=== PATIENT | female | born 1945 | race Caucasian/White ===

== ENCOUNTER 2016-08-11 19:54 | Inpatient (IN) | payer OTHER, MEDICARE ==
[~2016-08-11] VITALS: Ht 157.5 cm; Wt 103.9 kg
[~2016-08-11 19:54] MED LIST: BYETTA250 MCG/ML SC; GLYBURIDE5 MG PO; LEVEMIR100 UNIT/1 SC; METFORMIN HYDR500 M1 PO; METFORMIN1000 MG PO; OXYBUTYNIN CHLO10 M1 PO; PIOGLITAZONE45 MG PO; PRAVACHOL80 M1 PO; VENLAFAXINE HYD75 M1 PO; ZOFRAN ODT4 MG SL
[2016-08-11] MEDS ORDERED: GLUCOPHAGE1000 M1 PO (20:52)
[2016-08-11] MEDS ORDERED: PIOGLITAZONE HC45 M1 PO (20:53)
[2016-08-11] MEDS ORDERED: VENLAFAXINE HCL75 M1 PO (20:53)
[2016-08-11] MEDS ORDERED: PREDNISONE20 M1 PO (20:53)
[2016-08-11] MEDS ORDERED: GABAPENTIN300 M2 PO (20:53)
[2016-08-11] MEDS ORDERED: MAGNESIUM400 M1 PO (20:54)
[2016-08-11] MEDS ORDERED: TURMERIC500 M1 PO (20:54)
[2016-08-11] MEDS ORDERED: VITAMIN B-121000 MC3 PO (20:55)
[2016-08-11] MEDS ORDERED: LECITHIN1200 MG PO (20:55)
[2016-08-11] MEDS ORDERED: CO Q-10150 MG PO (20:55)
--- NOTE | 2016-08-11 21:06 | ED DYSPNEA/ASTHMA COMPLAINT ---
History of Present Illness General Chief Complaint: Dyspnea (COPD, CHF, Other) Stated Complaint: SOB Source: patient, family, old records, Epic records Exam Limitations: no limitations Vital Signs & Intake/Output Vital Signs & Intake/Output Vital Signs Date Time Temp Pulse Resp B/P B/P Pulse O2 O2 Flow FiO2 Mean Ox Delivery Rate 08/11 2216 87 16 137/79 96 Nasal 2.0L Cannula 08/12 2203 97.0 86 20 134/62 96 Nasal 2.0L Cannula 08/11 2202 90 16 116/72 97 Nasal 2.0L Cannula 08/11 2038 94 08/11 2012 97.5 95 24 121/79 92 Room Air Allergies Coded Allergies: hydrocodone (From Vicodin) (RASH/ITCHY 01/18/16) Reconcile Medications Cyanocobalamin (Vitamin B-12) (Unknown Strength) TABLET (Unknown Dose) PO DAILY SUPPLEMENT (Reported) Gabapentin 300 MG CAPSULE 1 CAP PO QPM NERVE PAIN (Reported) Insulin Detemir (Levemir) 100 UNIT/ML VIAL 37 UNITS SC QAM DM (Reported) Lecithin (Unknown Strength) CAPSULE (Unknown Dose) PO DAILY SUPPLEMENT ( Reported) Magnesium Oxide (Magnesium) (Unknown Strength) CAPSULE (Unknown Dose) PO DAILY SUPPLEMENT (Reported) Metformin HCl (Glucophage) 1,000 MG TABLET 1 TAB PO BID DM (Reported) Pioglitazone HCl 45 MG TABLET 1 TAB PO DAILY DM (Reported) Pravastatin Sodium (Pravachol) 80 MG TABLET 1 TAB PO DAILY CHOLESTEROL ( Reported) Prednisone 20 MG TABLET 1 TAB PO DAILY STEROID (Reported) Turmeric Root Extract (Turmeric) (Unknown Strength) CAPSULE (Unknown Dose) PO BID SUPPLEMENT (Reported) Ubidecarenone (Co Q-10) (Unknown Strength) CAPSULE (Unknown Dose) PO DAILY SUPPLEMENT (Reported) Venlafaxine HCl (Venlafaxine HCl ER) 75 MG CAP.ER.24H 1 CAP PO DAILY MENTAL HEALTH (Reported) Triage Note: PER PT "MY DAUGHTER SAYS I'M BREATHING FUNNY" HAD A BRONCHOSCOPY TODAY FOR A SPOT ON MY LUNG, NO CP NO PREVIOUS SOB, PT REFERS ALL QUESTIONS TO DAUGHTER. Triage Nurses Notes Reviewed? yes Onset: Just prior to arrival Duration: hour(s):, better, changing over time Timing: recent history Severity: severe Activities at Onset: activity Modifying Factors: Improves With: rest. Worsens With: movement. Associated Symptoms: cough, fever, weakness LMP (ages 10-50): post menopausal : No Patient currently breastfeeds: No HPI: On the day of admission patient had bronchoscopy and biopsy for right lung mass. The daughter reports she vomited with LMA and transitioned to ET tube. Post procedure chest x-ray demonstrated bilateral patchy perihilar opacity without pneumothorax. 2 hours prior to admission patient spiked fever to 102 with coughing shortness of breath and perioral cyanosis that is now improved. She denies chest pain headache dysuria rash bleeding no further shortness of breath. Past History Travel History Traveled to [place] past 21 day No Medical History Any Pertinent Medical History? see below for history Respiratory: lung mass Musculoskeletal: polymyalgia Endocrine: diabetes Influenza Vaccine: 12/12/15 Surgical History Surgical History: non-contributory Psychosocial History What is your primary language Setswana Family History Hx Contributory? No Review of Systems Review of Systems Constitutional: Reports: see HPI, fever, malaise. EENTM: Reports: no symptoms. Respiratory: Reports: see HPI, cough, short of breath. Cardiovascular: Reports: no symptoms. GI: Reports: no symptoms. Genitourinary: Reports: no symptoms. Musculoskeletal: Reports: no symptoms. Skin: Reports: see HPI, change in skin color. Neurological/Psychological: Reports: no symptoms. Hematologic/Endocrine: Reports: no symptoms. Immunologic/Allergic: Reports: no symptoms. All Other Systems: Reviewed and Negative Physical Exam Physical Exam General Appearance: well developed/nourished, alert, awake, anxious, mild distress, obese Head: atraumatic, normal appearance Eyes: Bilateral: normal appearance, PERRL, EOMI. Ears, Nose, Throat: normal pharynx, normal ENT inspection, hearing grossly normal Neck: normal inspection, supple, full range of motion, no midline tenderness Respiratory: chest non-tender, no respiratory distress, decreased breath sounds, rales Cardiovascular: regular rate/rhythm, normal peripheral pulses, norml femoral pulses equa Peripheral Pulses: 4+ carotid (R), 4+ carotid (L) Gastrointestinal: normal bowel sounds, soft, non-tender, no organomegaly Extremities: normal inspection, normal capillary refill, normal range of motion, no edema Neurologic/Psych: no motor/sensory deficits, awake, alert, oriented x 3, normal gait, normal mood/affect Skin: intact, normal color, warm/dry Lymphatic: no anterior cervical ebenezer Core Measures ACS in differential dx? Yes ASA ordered for poss ACS? No-ACS ruled out Severe Sepsis Present: No Septic Shock Present: No Progress Differential Diagnosis: AMI, CHF, COPD, pneumonia Plan of Care: Orders Procedure Date/time Status Consistent Carbohydrate 2 08/12 B Active OXYGEN SETUP (GEN) 08/11 2102 Active Saline Lock 08/11 2102 Active Admit to inpatient 08/11 2102 Active Vital Signs 08/11 2102 Active Activity/Ambulation 08/11 2102 Active Code Status 08/11 2102 Active BLOOD CULTURE 08/11 2033 Active TROPONIN LEVEL 08/11 2028 Complete COMPREHENSIVE METABOLIC PANEL 08/11 2028 Complete CBC WITHOUT DIFFERENTIAL 08/11 2028 Complete B-TYPE NATRIURETIC PEP (BNP) 08/11 2028 Complete EKG 08/11 1954 Active Laboratory Tests 08/11/162049: Anion Gap 12, Estimated GFR > 60, BUN/Creatinine Ratio 13.8, Glucose 316 H, Calcium 8.2 L, Total Bilirubin 0.4, AST 26, ALT 30, Alkaline Phosphatase 100, Troponin I 0.02, Tpo-W-Trcglrwzjiy Pept 184 H, Total Protein 6.0 L, Albumin 3.4 L, Globulin 2.6, Albumin/Globulin Ratio 1.3, CBC w Diff NO MAN DIFF REQ, RBC 3.86 L, MCV 82.8, MCH 27.6, RDW 16.6 H, MPV 7.2 L, Gran % 96.1 H, Lymphocytes % 3.2 L, Monocytes % 0.5 L, Eosinophils % 0.2, Basophils % 0 L, Absolute Granulocytes 15.2 H, Absolute Lymphocytes 0.5 L, Absolute Monocytes 0.1 L, Absolute Eosinophils 0, Absolute Basophils 0, PUBS MCHC 33.3 Microbiology 08/11 2134 BLOOD: Blood Culture - RECD 08/11 2049 BLOOD: Blood Culture - RECD Diagnostic Imaging: Viewed by Me: Radiology Read. Discussed w/RAD: Radiology Read. CXR Impression: Prominent bilateral perihilar opacities. These findings are entirely nonspecific. It may represent prominence of the pulmonary vasculature or perhaps mild alveolar edema although infiltrates cannot be entirely excluded in the appropriate clinical setting. Initial ED EKG: normal axis, normal intervals, normal p-waves, normal QRS complex, rhythm (sinus tachycardia), no ST T wave changes Rhythm Strip: sinus tachycardia Departure Departure Disposition: STILL A PATIENT Condition: Stable Clinical Impression Primary Impression: Aspiration pneumonia due to regurgitated gastric secretions Qualifiers: Laterality: bilateral Lung location: unspecified part of lung Qualified Code: J69.0 - Pneumonitis due to inhalation of food and vomit Referrals: VERONICA EDDY MD (PCP/Family) Departure Forms: Customer Survey General Discharge Information Admission Note Spoke With: MAUREEN SOTELO MD Documentation of Exam: Documentation of any treatments & extenuating circumstances including Concerns Regarding Discharge (functional status, medication knowledge or non-compliance, living conditions, etc.) that warrant an admission rather than observation: Supplemental oxygen follow cultures IV antibiotics medication adjustment pulmonary evaluation continuing care discharge planning Critical Care Note Critical Care Note Critical Care Time: non-applicable
[2016-08-11 21:16] LABS: ABSOLUTE BASOPHIL COUNT 0 /CUMM (0.0-0.2); ABSOLUTE EOSINOPHIL COUNT 0 /CUMM (0.0-0.7); ABSOLUTE GRANULOCYTE CT 15.2 /CUMM (1.4-6.5); ABSOLUTE LYMPH COUNT 0.5 /CUMM (1.2-3.4); ABSOLUTE MONOCYTE COUNT 0.1 /CUMM (0.10-0.60); BASOPHIL % 0 % (0.0-2.0); EOSINOPHIL % 0.2 % (0-5); MEAN CORPUSCULAR HGB 27.6 PG (27.0-31.0); MEAN CORPUSCULAR HGB CONC 33.3 G/DL (33.0-37.0); MEAN CORPUSCULAR VOLUME 82.8 FL (81.0-99.0); MEAN PLATELET VOLUME 7.2 FL (7.4-10.4); PLATELET COUNT 339 /CUMM (130-400); RBC DISTRIBUTION WIDTH 16.6 % (11.5-14.5); RED BLOOD CELL CT 3.86 /CUMM (4.20-5.40); WHITE BLOOD CELL COUNT 15.9 /CUMM (4.8-10.8)
[2016-08-11 21:28] LABS: GRANULOCYTE % 96.1 % (42.2-75.2)
--- NOTE | 2016-08-11 22:50 | RADIOLOGY REPORT ---
EXAMINATION: XR CHEST CLINICAL INFORMATION: Status post bronchoscopy with new bilateral perihilar infiltrates. COMPARISON: Chest x-ray 09/24/2013. TECHNIQUE: PA and lateral views of the chest were obtained. FINDINGS: PA and lateral views of the chest demonstrate pulmonary hypoinflation. There are prominent bilateral perihilar opacities, right greater than left, which are entirely nonspecific. There are subtle patchy opacities within the lingula. No pleural effusions or pneumothoraces. Cardiomediastinal contours are stable. No acute osseous abnormality. IMPRESSION: Prominent bilateral perihilar opacities. These findings are entirely nonspecific. It may represent prominence of the pulmonary vasculature or perhaps mild alveolar edema although infiltrates cannot be entirely excluded in the appropriate clinical setting.
--- NOTE | 2016-08-11 23:33 | History & Physical ---
BEATRIZ CALDERA 08/11/16 2333: General Information and HPI MD Statement: I have seen and personally examined WILLA CONNOR and documented this H&P. The patient is a 71 year old F who presented with a patient stated chief complaint of [shortness of breath]. Source of Information: patient Exam Limitations: no limitations History of Present Illness: 71-year-old female with a past medical history of insulin-dependent diabetes mellitus, sleep apnea not on an IV, questionable PMR on chronic steroids presented to the ED with chief complaints of shortness of breath. Apparently patient underwent a routine chest x-ray at her primary care physician and was found to have a spot on her right lung. She was evaluated further for it by a bronchoscopy earlier this morning at [place]. Patient states that she was told that she may have vomited during the procedure. She was discharged home and started to experience sudden onset of shortness of breath, as she stated that she couldn't take a deep breath. She endorsed palpitations and cough but denied bringing up any phlegm. She denied any fever, chills, chest pain, nausea , vomiting, abdominal pain, alterations in bowel movements, urinary complaints. She denied any headache, recent upper respiratory tract infection, any history of prolonged travel. Allergies/Medications Allergies: Coded Allergies: hydrocodone (From Vicodin) (RASH/ITCHY 01/18/16) Home Med list Cyanocobalamin (Vitamin B-12) 1,000 MCG TABLET 1 TAB PO DAILY SUPPLEMENT ( Reported) Gabapentin 300 MG CAPSULE 1 CAP PO QPM NERVE PAIN (Reported) Insulin Detemir (Levemir) 100 UNIT/ML VIAL 37 UNITS SC QAM DM (Reported) Lecithin 1,200 MG CAPSULE 1 CAP PO DAILY SUPPLEMENT (Reported) Magnesium Oxide (Magnesium) 400 MG CAPSULE 1 TAB PO DAILY SUPPLEMENT ( Reported) Metformin HCl (Glucophage) 1,000 MG TABLET 1 TAB PO BID DM (Reported) Pioglitazone HCl 45 MG TABLET 1 TAB PO DAILY DM (Reported) Pravastatin Sodium (Pravachol) 80 MG TABLET 1 TAB PO DAILY CHOLESTEROL ( Reported) Prednisone 20 MG TABLET 1 TAB PO DAILY STEROID (Reported) Turmeric Root Extract (Turmeric) 500 MG CAPSULE 1 CAP PO BID SUPPLEMENT ( Reported) Ubidecarenone (Co Q-10) 150 MG CAPSULE 1 CAP PO DAILY SUPPLEMENT (Reported) Venlafaxine HCl (Venlafaxine HCl ER) 75 MG CAP.ER.24H 1 CAP PO DAILY MENTAL HEALTH (Reported) Compliance With Home Meds: GOOD Past History Travel History Traveled to [place] past 21 day No Medical History Neurological: NONE EENT: NONE Cardiovascular: NONE Respiratory: lung mass Gastrointestinal: NONE Hepatic: NONE Renal: NONE Musculoskeletal: polymyalgia Psychiatric: NONE Endocrine: diabetes Blood Disorders: NONE Cancer(s): NONE Influenza Vaccine: 12/12/15 Surgical History Surgical History: appendectomy, bunionectomy, gastric bypass, plantar fasciitis, catarct Past Family/Social History Family History Relations & Conditions if any Relation not specified for: *No pertinent family history Psychosocial History Where do you live? Home Smoking Status: Never Smoked ETOH Use: denies use Illicit Drug Use: denies illicit drug use Functional Ability ADLs Independent: dressing, eating, toileting, bathing. Ambulation: independent Review of Systems Review of Systems Constitutional: Denies: chills, fever, malaise, weakness. EENTM: Denies: visual changes. Cardiovascular: Reports: palpitations. Denies: chest pain, edema, orthopena, peripheral edema, syncope. Respiratory: Reports: cough, short of breath. Denies: hemoptysis, orthopnea, sputum production, wheezing. GI: Denies: abdominal pain, diarrhea, nausea, changes in stool, vomiting. Genitourinary: Reports: no symptoms. Musculoskeletal: Reports: no symptoms. Neurological/Psychological: Denies: headache, numbness, tingling, tremors, unable to move lower ext, unable to move upper ext, weakness. Exam & Diagnostic Data Last 24 Hrs of Vital Signs/I&O Vital Signs Date Time Temp Pulse Resp B/P B/P Pulse O2 O2 Flow FiO2 Mean Ox Delivery Rate 08/12 014 98.1 76 20 136/80 96 Nasal 2.0L Cannula 08/11 2216 87 16 137/79 96 Nasal 2.0L Cannula 08/12 2203 97.0 86 20 134/62 96 Nasal 2.0L Cannula 08/11 2202 90 16 116/72 97 Nasal 2.0L Cannula 08/11 2038 94 08/11 2012 97.5 95 24 121/79 92 Room Air Physical Exam General Appearance Alert, Oriented X3, Cooperative, No Acute Distress Skin No Rashes, No Breakdown Skin Temp/Moisture Exam: Warm/Dry Sepsis Skin Exam (color): Normal for Ethnicity HEENT Atraumatic, PERRLA, EOMI, Mucous Membr. moist/pink Neck Supple, No JVD, No thryomegaly, +2 Carotid Pulse wo Bruit, No LAD Cardiovascular Regular Rate, Normal S1, Normal S2, No Murmurs Lungs mild ronchi on right lung base Abdomen Normal Bowel Sounds, Soft, No Tenderness Neurological Normal Speech, Strength at 5/5 X4 Ext, Normal Tone, Sensation Intact, Cranial Nerves 3-12 NL, Reflexes 2+ Extremities No Clubbing, No Cyanosis, No Edema, Normal Pulses, No Tenderness/ Swelling Vascular Normal Pulses, Pulses Symmetrical Sepsis Peripheral Pulse Location: Dorsalis Pedis Sepsis Peripheral Pulse Exam: Normal Last 24 Hrs of Labs/Issa: Laboratory Tests 08/11/162049: Anion Gap 12, Estimated GFR > 60, BUN/Creatinine Ratio 13.8, Glucose 316 H, Calcium 8.2 L, Total Bilirubin 0.4, AST 26, ALT 30, Alkaline Phosphatase 100, Troponin I 0.02, Emo-N-Byfwywcwnvi Pept 184 H, Total Protein 6.0 L, Albumin 3.4 L, Globulin 2.6, Albumin/Globulin Ratio 1.3, CBC w Diff NO MAN DIFF REQ, RBC 3.86 L, MCV 82.8, MCH 27.6, RDW 16.6 H, MPV 7.2 L, Gran % 96.1 H, Lymphocytes % 3.2 L, Monocytes % 0.5 L, Eosinophils % 0.2, Basophils % 0 L, Absolute Granulocytes 15.2 H, Absolute Lymphocytes 0.5 L, Absolute Monocytes 0.1 L, Absolute Eosinophils 0, Absolute Basophils 0, PUBS MCHC 33.3 Microbiology 08/11 2134 BLOOD: Blood Culture - RECD 08/11 2049 BLOOD: Blood Culture - RECD Diagnostic Data EKG Results Sinus tachycardia, 101, normal axis, CT: 180, QTc: 441, no ST-T changes CXR Results FINDINGS: PA and lateral views of the chest demonstrate pulmonary hypoinflation. There are prominent bilateral perihilar opacities, right greater than left, which are entirely nonspecific. There are subtle patchy opacities within the lingula. No pleural effusions or pneumothoraces. Cardiomediastinal contours are stable. No acute osseous abnormality. IMPRESSION: Prominent bilateral perihilar opacities. These findings are entirely nonspecific. It may represent prominence of the pulmonary vasculature or perhaps mild alveolar edema although infiltrates cannot be entirely excluded in the appropriate clinical setting. Assessment/Plan Assessment: 71-year-old female with a past medical history of insulin-dependent diabetes mellitus, sleep apnea not on an IV, questionable PMR on chronic steroids presented to the ED with chief complaints of shortness of breath. Vitals at the time admission blood pressure 137/79, respiratory rate of 16, pulse 87, saturating 96% on 2 L of oxygen via nasal cannula. Labs pertinent for leukocytosis with a white blood cell count 15,900, normocytic anemia with an H&H of 10.6/32.0, platelet count 233,000. Serum chemistries reveal hyponatremia with a sodium of 136, potassium of 4.4, bicarbonate of 19, anion gap of 12, BUN 11, creatinine of 0.8 with serum glucose elevated to 316. LFTs unremarkable with an AST/ALT of 26/30, alkaline phosphatase of 100, total bili of 0.4. Troponin first set was 2.02 with a proBNP of 184. Corrected serum calcium was within normal limits. Chest x-ray was done which showed prominent bilateral perihilar opacities. EKG showed sinus tachycardia with a heart rate of 101, normal axis, no ST-T changes, normal CT interval of 180 and a normal QTC of 441 ms. In the ER she received treatment with albuterol, Atrovent as well as a dose of Unasyn 3000 mg 1. Assessment and plan Admit patient to [facility] # Acute hypoxemic respiratory failure Most likely secondary to aspiration pneumonitis versus pneumonia unlikely as she does not have fever, and given the fact that she did have an episode of emesis while undergoing bronchoscopy. She already received Unasyn in the ER, for now we'll continue her on Unasyn 3000 mg IV.Consider D/C if she doesnt spike a temp F/U LRC Check lactic acid Follow-up lower respiratory cultures Vitals every shift TRC eval Incentive spirometry Continue to wean off of oxygen to maintain saturations greater than 94%. F/U CXR in AM. #Insulin-dependent diabetes mellitus Continue her on Levemir 37 units in the morning Hold metformin and pioglitazone have her on NovoLog sliding scale while in the hospital #Nomrocytic anemia - 2/2 iron deficiency vs anemia of chronic disease - Check iron studies, and guaic stools. #Hyperlipidemia Continue on pravastatin 80 mg daily #? PMR Continue on prednisone 20 mg daily, gabapentin 300 mg at bedtime -DVT prophylaxis Heparin 5000 international units 3 times a day subcutaneous - Diet Diabetic - CODE STATUS Full code As Ranked By This Provider Problem List: 1. Aspiration pneumonia due to regurgitated gastric secretions Qualifiers Laterality: bilateral Lung location: unspecified part of lung Qualified Code: J69.0 - Pneumonitis due to inhalation of food and vomit Core Measures/Miscellaneous Acute Coronary Syndrome ACS Diagnosis: No Cerebrovascular Accident CVA/TIA Diagnosis: No Congestive Heart Failure CHF Diagnosis: No Venous Thromboembolism VTE Risk Factors: Age > 40 [facility] prophylaxis d/t: No contraindications No VTE Pharm Prophylaxis d/t: No contraindications VTE Diagnosis: No VTE Type: NONE VTE Confirmed by (Test): NONE Severe Sepsis Severe Sepsis Present: No Septic Shock Septic Shock Present: No Miscellaneous Documentation Attending Case Discussed With: MAUREEN SOTELO MD Primary Care Physician: VERONICA EDDY MD Patient sees these Specialists Dr. Roc Crouch Level of Patient Care: General Medicine Resident Review Statement Resident Statement: admitted by resident MAUREEN SOTELO 08/12/16 0314: Attending MD Review Statement Attending Statement Attending MD Statement: examined this patient, discuss w/resident/PA/CATARACT LENS GENERATOR, agreed w/resident/PA/CATARACT LENS GENERATOR, reviewed EMR data (avail), reviewed images, amended to note Attending Assessment/Plan: CC: Breathing difficulty PMH: DM, obesity S/P gastric bypass, SHY not on CPAP, MVP Patient underwent bronchoscopy today at [facility] for biopsy of spot on the right lung. Patient vomited during the procedure and may have aspirated. Upon discharge today patient was noticing some dry cough, worsening difficulty breathing, chest tightness. Patient did not have any further vomiting at home, no fever, chills. Of note patient was having generalized body aches and pains and was started on low dose prednisone by PCP and scheduled an appointment for rheumatology (her ESR in June 2016 is 81). Vitals: Afebrile, HR in 8 days, RR 24 upon arrival then improved to 16, blood pressure 121/79, requiring 2 L nasal cannula to saturate at 96% On exam: A O 3, cooperative, no acute distress, no accessory muscles of respiration in use, neck supple, JVD normal, no lymphadenopathy, mucosa moist, no focal neurological deficit, no dependent edema, no obvious skin rashes or inflammation CVS: S1-S2, RRR, systolic murmur at parasternal area. RS: By basilar coarse breathing right more than left. Abdomen: Soft, NT, ND, bowel sounds present. Labs: WBC 15.9, neutrophils 96%, hemoglobin 10.6, hematocrit 32.0, MCV 82, RDW 16, sodium 136, potassium 4.4, chloride 105, bicarbonate 19, anion gap 12, BUN 11, creatinine 0.8, glucose 316, calcium 8.2, proBNP 184, troponin 0.02 CXR: Prominent bilateral perihilar opacities. These findings are entirely nonspecific. It may represent prominence of the pulmonary vasculature or perhaps mild alveolar edema although infiltrates cannot be entirely excluded in the appropriate clinical setting. EKG: Sinus tachycardia A and P 71-year-old female with past medical history significant for diabetes, gastric bypass for obesity was under evaluation for "spot on right lung" , underwent bronchoscopy and biopsy today. Patient had vomiting while procedure and may have aspirated. After going home patient was persistently having cough and difficulty breathing so she came to ER. Patient had significant leukocytosis and tachypnea but no fever. She is requiring 2 L to saturate at 92-94%. And is coarse on auscultation. Most likely patient may have chemical pneumonitis secondary to aspiration versus pneumonia. + Aspiration pneumonitis versus pneumonia + History of DM, chronic pain (?PMR) - Admit to general medicine - Continue O2 by nasal cannula, try to wean off - Incentive spirometry and flutter valve - Check lactic acid - Continue Unasyn for today, to see consider antibiotics if patient is not spiking any fever or no significant leukocytosis - Chest x-ray PA and lateral view in a.m. - check Iron studies and retic count : unclear etiology of anemia - Continue home doses of gabapentin, prednisone, pravastatin and venlafaxine - Hold metformin and Actos continue sliding scale insulin - Adequate pain control - DVT prophylaxis
[2016-08-12 01:47] VITALS: BP 136/80
--- NOTE | 2016-08-12 03:15 | Admission Certification ---
Admission Certification Certification Statement - As attending physician, I certify that at the time of - admission, based on clinical presentation, severity of - symptoms, need for further diagnostic testing and - therapeutic interventions, and risk of adverse outcomes - without in-hospital treatment, in my clinical assessment, - this patient requires an acute hospital stay for a minimum - of two nights or longer. I have also considered psychsocial - factors such as support system, advanced age, financial - issues, cognitive issues, and failed out-patient treatments, - past re-admission history, safety of patient, and lack of - compliance as applicable. Specific rationale supporting this admission is: Aspiration pneumonia versus pneumonitis S/P bronchoscopy
--- NOTE | 2016-08-12 07:47 | PN- Housestaff ---
JULIA OBRIEN,[facility] 08/12/16 0746: Subjective Follow-up For: Shortness of breath Complaints: Shortness of breath Subjective: Ms Ricketts says she feels some improvement in her shortness of breath since yesterday. she denies fever, chills, chest pain or cough. Review of Systems Constitutional: Reports: see HPI. Denies: chills, fever, malaise, weakness. EENTM: Denies: blurred vision, double vision, nasal congestion, throat pain. Cardiovascular: Denies: edema, palpitations, syncope. Respiratory: Reports: short of breath. Denies: cough, stridor, wheezing. Gastrointestinal: Denies: abdominal pain, diarrhea, distention. Genitourinary: Denies: dysuria, pain. Objective Last 24 Hrs of Vital Signs/I&O Vital Signs Date Time Temp Pulse Resp B/P B/P Pulse O2 O2 Flow FiO2 Mean Ox Delivery Rate 08/12 0800 98.0 70 20 118/60 96 Nasal 2.0L Cannula 08/12 0147 98.1 76 20 136/80 96 Nasal 2.0L Cannula 08/12 0054 Nasal 2.0L Cannula 08/11 2217 87 16 137/79 96 Nasal 2.0L Cannula 08/11 2204 97.0 86 20 134/62 96 Nasal 2.0L Cannula 08/11 2203 90 16 116/72 97 Nasal 2.0L Cannula 08/11 2038 94 08/11 2012 97.5 95 24 121/79 92 Room Air Intake & Output 08/12 1600 08/12 0800 08/12 0000 Intake Total 160 Output Total 350 Balance -190 Intake, IV 110 Intake, Oral 50 Output, Urine 350 Patient 230 lb Weight Weight Reported by Patient Measurement Method Physical Exam General Appearance: Alert, Oriented X3, Cooperative, No Acute Distress Skin: No Rashes, No Breakdown, No Significant Lesion Skin Temp/Moisture Exam: Warm/Dry Sepsis Skin Exam (color): Normal for Ethnicity HEENT: Atraumatic, PERRLA, EOMI, Mucous Membr. moist/pink Neck: Supple Lymphatic: Cervical nl Cardiovascular: Regular Rate, Normal S1, Normal S2, No Murmurs Lungs: Normal Air Movement, Bilateral scattered fine crackles in both lungs, No wheeze Abdomen: Normal Bowel Sounds, Soft, No Tenderness, No Hepatospenomegaly Neurological: Normal Speech, Normal Tone Extremities: No Edema, Normal Pulses Vascular: Normal Pulses, Pulses Symmetrical Current Medications: Current Medications Sig/Zulema Start time Last Medication Dose Route Stop Time Status Admin Acetaminophen 650 MG Q6P PRN 08/12 0145 AC PO Acetaminophen 1,000 MG Q6P PRN 08/12 0145 AC N/A 1 UNIT IV Albuterol Sulfate 3 ML ONCE ONE 08/11 2029 DC 08/11 INH 08/11 Ampicillin Sodium/ 3,000 MG Q6H 08/12 0400 AC 08/12 Sulbactam Sodium IV 0416 Sodium Chloride 100 ML Ampicillin Sodium/ 0 .STK-MED ONE 08/115 DC Sulbactam Sodium .ROUTE Ampicillin Sodium/ 3,000 MG ONCE ONE 08/11 2114 DC 08/11 Sulbactam Sodium IV 08/11 2144 2156 Sodium Chloride 100 ML Gabapentin 300 MG QPM 08/12 2200 AC PO Heparin Sodium 5,000 UNIT Q8 08/12 0600 AC 08/12 (Porcine) SC 0513 Insulin Aspart 0 TIDAC 08/12 0800 AC 08/12 SC 0819 Insulin Detemir 37 UNITS QAM 08/12 1000 AC 08/12 SC 0820 Ipratropium Newcomb 2.5 ML ONCE ONE 08/11 2029 DC 08/11 INH 08/11 Oxycodone HCl 10 MG Q6P PRN 08/12 0145 AC PO Pravastatin Sodium 80 MG 1700 08/12 1700 AC PO Prednisone 20 MG DAILY 08/12 1000 AC 08/12 PO 0819 Last 24 Hrs of Lab/Issa Results Last 24 Hrs of Labs/Mics: Laboratory Tests 08/12/16 0540: Lactic Acid 2.6 H 08/12/16 0540: Anion Gap 8, Estimated GFR > 60, BUN/Creatinine Ratio 16.7, CBC w Diff NO MAN DIFF REQ, RBC 3.50 L, MCV 83.6, MCH 27.6, RDW 16.6 H, MPV 7.9, Gran % 89.4 H, Lymphocytes % 5.5 L, Monocytes % 5.0, Eosinophils % 0, Basophils % 0.1, Absolute Granulocytes 13.1 H, Absolute Lymphocytes 0.8 L, Absolute Monocytes 0.7 H, Absolute Eosinophils 0, Absolute Basophils 0, PUBS MCHC 33.0 08/11/162049: Anion Gap 12, Estimated GFR > 60, BUN/Creatinine Ratio 13.8, Glucose 316 H, Calcium 8.2 L, Iron 36 L, TIBC 371, Ferritin 36.0, Total Bilirubin 0.4, AST 26 , ALT 30, Alkaline Phosphatase 100, Troponin I 0.02, Jrl-A-Vaahwvdhqct Pept 184 H, Total Protein 6.0 L, Albumin 3.4 L, Globulin 2.6, Albumin/Globulin Ratio 1.3, CBC w Diff NO MAN DIFF REQ, RBC 3.86 L, MCV 82.8, MCH 27.6, RDW 16.6 H, MPV 7.2 L, Gran % 96.1 H, Lymphocytes % 3.2 L, Monocytes % 0.5 L, Eosinophils % 0.2, Basophils % 0 L, Absolute Granulocytes 15.2 H, Absolute Lymphocytes 0.5 L, Absolute Monocytes 0.1 L, Absolute Eosinophils 0, Absolute Basophils 0, PUBS MCHC 33.3, Retic Count 2.38 H Microbiology 08/11 2134 BLOOD: Blood Culture - RECD 08/11 2049 BLOOD: Blood Culture - RECD Assessment/Plan Assessment: 71-year-old female with a past medical history of insulin-dependent diabetes mellitus, sleep apnea not on CPAP, questionable polymyalgia rheumatica on chronic steroids presented to the ED with chief complaints of shortness of breath shortly after a bronchoscopy for a suspicious lung nodule at [place]. Her symptoms are consistent with a chemical pneumonitis or chemical pneumonia. She is on Unasyn and was afebrile overnight. She clinically appears improved. 1. Acute hypoxemic respiratory failure * Most likely secondary to aspiration pneumonitis versus pneumonia unlikely as she does not have fever, and given the fact that she did have an episode of emesis while undergoing bronchoscopy. * Continue IV Unasyn 3000 mg IV for now * Will discontinue if she doesnt spike a temp in next 24 hrs * Sputum culture (If patient can cough up) * lactic acid was slightly elevated at 2.6 * Will hydrate with NSaline 100 cc/hrX1 bag * Monitor vitals every shift * TRC evaluation * Incentive spirometry * Please continue to wean off of oxygen to maintain saturations greater than 94% . * Repeat chest Xray this morning to assess for improvement 2. Diabetes mellitus * Blood glucose fasting this am is 202 * Continue her on Levemir 37 units in the morning * Continue holding metformin and pioglitazone * NovoLog sliding scale 3.Nomrocytic anemia * Patient states that she has anemial for a long time in her adulthood * likely 2/2 iron deficiency vs anemia of chronic disease * Iron studies suggest anemia of chronic disease (Could be from her Polymyalgia rheumatica) 4 Hyperlipidemia * Continue on pravastatin 80 mg daily 5. Polymyalgia rheumatica (PMR) * Continue on prednisone 20 mg daily, gabapentin 300 mg at bedtime DVT prophylaxis * Heparin 5000 international units 3 times a day subcutaneous - Diet Diabetic - CODE STATUS Full code Problem List: 1. Aspiration pneumonia due to regurgitated gastric secretions Pain Ratin Pain Location: None Pain Goal: Remain pain free Pain Plan: Tylenol as needed Tomorrow's Labs & Rationales: CBC for anemia and WBC in aspiration pneumonia DVT/Prophylaxis: pharmacological PRESTON VELAZQUEZ MD 08/12/16 1830: Attending MD Review Statement Attending Statement Attending MD Statement: examined this patient, discuss w/resident/PA/CORE OVEN TENDER, agreed w/resident/PA/CORE OVEN TENDER, reviewed EMR data (avail) Attending Assessment/Plan: 71F PMH T2DM, gastric bypass, day of admission underwent bronchoscopy for lung nodule with heaven-procedural vomiting, admitted for shortness of breath, pleuritic chest pain, and hypoxia in the setting of aspiration pneumonitis. Of patient patient is on Prednisone for presumed polymyalgia rheumatica, workup still underway by nurse receptionist. Patient feels a bit better today and is breathing easier. She reports improvement in pleuritic chest pain. Requiring 2L NC to maintain at 92% saturation. Afebrile, WBC improved slightly from 15 to 14. Cultures NGTD. 1. Aspiration pneumonitis 2. Hypoxia 3. Pleuritic chest pain 4. Hyperglycemia in T2DM Plan - Continue on general medicine - Can continue Unasyn for now, if cultures negative may stop - TRC/nebulizer treatment - Mucinex - Continue home medications - Titrate down oxygen as tolerated - DVT PPx
[2016-08-12 08:00] VITALS: BP 118/60
[2016-08-12 08:13] LABS: ABSOLUTE BASOPHIL COUNT 0 /CUMM (0.0-0.2); ABSOLUTE EOSINOPHIL COUNT 0 /CUMM (0.0-0.7); ABSOLUTE GRANULOCYTE CT 13.1 /CUMM (1.4-6.5); ABSOLUTE LYMPH COUNT 0.8 /CUMM (1.2-3.4); ABSOLUTE MONOCYTE COUNT 0.7 /CUMM (0.10-0.60); BASOPHIL % 0.1 % (0.0-2.0); EOSINOPHIL % 0 % (0-5); HEMATOCRIT 29.2 % (37-47); MEAN CORPUSCULAR HGB 27.6 PG (27.0-31.0); MEAN CORPUSCULAR VOLUME 83.6 FL (81.0-99.0); MEAN PLATELET VOLUME 7.9 FL (7.4-10.4); RBC DISTRIBUTION WIDTH 16.6 % (11.5-14.5); WHITE BLOOD CELL COUNT 14.6 /CUMM (4.8-10.8)
[2016-08-12 09:27] LABS: GRANULOCYTE % 89.4 % (42.2-75.2); PLATELET COUNT 305 /CUMM (130-400)
--- NOTE | 2016-08-12 12:21 | RADIOLOGY REPORT ---
EXAMINATION: XR CHEST CLINICAL INFORMATION: Acute hypoxic respiratory failure. Follow-up of pneumonia. COMPARISON: Chest x-ray dated 08/11/2016, 09/24/2013. TECHNIQUE: 2 views of the chest were obtained. FINDINGS: The cardiomediastinal silhouette is enlarged. Again seen is bilateral hilar fullness, more prominent on the right side than the left, likely related to slight patient rotation and most likely related to enlarged central pulmonary arteries. There is also central vascular congestion seen with perihilar opacities, raising the suspicion of mild interstitial pulmonary edema. Linear platelike atelectasis in the left midlung and bilateral lower lung atelectatic changes are noted. No effusion or pneumothorax is seen. Bony structures are grossly unremarkable. IMPRESSION: 1. Findings are suggestive of mild pulmonary edema. Clinical correlation requested. 2. Bilateral hilar fullness is seen, likely related to enlarged pulmonary arteries and pulmonary arterial hypertension. Findings have, however, apparently progressed compared to 09/24/2013, though comparison is limited based on current AP technique versus prior PA technique. Consider further assessment with chest CT scan. 3. Atelectatic changes in the lungs as discussed above. No focal pneumonia.
[2016-08-12 17:14] VITALS: BP 153/76
[2016-08-12 22:56] VITALS: BP 142/82
[2016-08-13 08:10] LABS: ABSOLUTE BASOPHIL COUNT 0 /CUMM (0.0-0.2); ABSOLUTE EOSINOPHIL COUNT 0.3 /CUMM (0.0-0.7); ABSOLUTE GRANULOCYTE CT 7.4 /CUMM (1.4-6.5); ABSOLUTE LYMPH COUNT 2.4 /CUMM (1.2-3.4); ABSOLUTE MONOCYTE COUNT 0.6 /CUMM (0.10-0.60); BASOPHIL % 0.4 % (0.0-2.0); EOSINOPHIL % 3.2 % (0-5); GRANULOCYTE % 68.1 % (42.2-75.2); HEMATOCRIT 28.9 % (37-47); MEAN CORPUSCULAR HGB 27.7 PG (27.0-31.0); MEAN CORPUSCULAR HGB CONC 32.9 G/DL (33.0-37.0); MEAN CORPUSCULAR VOLUME 84.3 FL (81.0-99.0); MEAN PLATELET VOLUME 7.3 FL (7.4-10.4); PLATELET COUNT 302 /CUMM (130-400); RBC DISTRIBUTION WIDTH 17.2 % (11.5-14.5); RED BLOOD CELL CT 3.43 /CUMM (4.20-5.40); WHITE BLOOD CELL COUNT 10.8 /CUMM (4.8-10.8)
--- NOTE | 2016-08-13 08:36 | PN- Housestaff ---
LOUIS OBRIEN,FABIANO 08/13/16 0836: Subjective Follow-up For: Chemical pneumonitis Subjective: Patient seen and examined this morning. No events reported overnight. Resting comfortably in bed with no acute complaints. Satting well on RA. Denies any fever, chills, chest discomfort, dyspnea, abdominal pain, headache, nausea, vomiting. Review of Systems Constitutional: Reports: see HPI. Objective Last 24 Hrs of Vital Signs/I&O Vital Signs Date Time Temp Pulse Resp B/P B/P Pulse O2 O2 Flow FiO2 Mean Ox Delivery Rate 08/13 0858 97.7 74 18 150/68 94 Room Air 08/12 2256 98.2 77 18 142/82 97 Room Air 08/12 1714 98.6 74 20 153/76 97 Nasal 4.0L Cannula 08/12 1440 Room Air Room Air Intake & Output 08/13 1600 08/13 0800 08/13 0000 Intake Total 770 926 9345 Output Total Balance 353 711 5682 Intake, IV 120 200 800 Intake, Oral 300 120 720 Number 1 Bowel Movements Patient 103.873 kg Weight Physical Exam General Appearance: Alert, Oriented X3, Cooperative, No Acute Distress Other Physical Findings: Skin: No Rashes, No Breakdown, No Significant Lesion Skin Temp/Moisture Exam: Warm/Dry Sepsis Skin Exam (color): Normal for Ethnicity HEENT: Atraumatic, PERRLA, EOMI, Mucous Membr. moist/pink Neck: Supple Lymphatic: Cervical nl Cardiovascular: Regular Rate, Normal S1, Normal S2, No Murmurs Lungs: Normal Air Movement, Bilateral scattered fine crackles in both lungs, No wheeze Abdomen: Normal Bowel Sounds, Soft, No Tenderness, No Hepatospenomegaly Neurological: Normal Speech, Normal Tone Extremities: No Edema, Normal Pulses Vascular: Normal Pulses, Pulses Symmetrical Current Medications: Current Medications Sig/Zulema Start time Last Medication Dose Route Stop Time Status Admin Acetaminophen 650 MG Q6P PRN 08/12 0145 AC 08/12 PO 1215 Acetaminophen 1,000 MG Q6P PRN 08/12 0145 AC N/A 1 UNIT IV Amoxicillin/ 500 MG Q12 08/13 1349 DCr Clavulanate Potassium PO Ampicillin Sodium/ 3,000 MG Q6H 08/12 0400 DC 08/13 Sulbactam Sodium IV 0953 Sodium Chloride 100 ML Gabapentin 300 MG QPM 08/12 2200 AC 08/12 PO 2159 Heparin Sodium 5,000 UNIT Q8 08/12 0600 AC 08/13 (Porcine) SC 0528 Insulin Aspart 0 TIDAC 08/12 0800 AC 08/13 SC 1225 Insulin Detemir 37 UNITS QAM 08/12 1000 AC 08/13 SC 0954 Oxycodone HCl 10 MG Q6P PRN 08/12 0145 AC PO Patient Medication 1 ED .STK-MED ONE 08/12 1423 NM Teaching ED 08/12 1424 Pravastatin Sodium 80 MG 1700 08/12 1700 AC 08/12 PO 1707 Prednisone 20 MG DAILY 08/12 1000 AC 08/13 PO 0954 Sodium Chloride 1,000 ML Q10H 08/12 1000 DC / IV 08/12 1959 1311 Last 24 Hrs of Lab/Issa Results Last 24 Hrs of Labs/Mics: Laboratory Tests 08/13/16 0720: Lactic Acid 1.4, CBC w Diff NO MAN DIFF REQ, RBC 3.43 L, MCV 84.3, MCH 27.7, RDW 17.2 H, MPV 7.3 L, Gran % 68.1, Lymphocytes % 22.6, Monocytes % 5.7, Eosinophils % 3.2, Basophils % 0.4, Absolute Granulocytes 7.4 H, Absolute Lymphocytes 2.4, Absolute Monocytes 0.6, Absolute Eosinophils 0.3, Absolute Basophils 0, PUBS MCHC 32.9 L Microbiology 08/12 1913 LOWER RESP: Respiratory Culture - COLB 08/12 1913 LOWER RESP: Gram Stain - COLB Assessment/Plan Assessment: 71-year-old female with a past medical history of insulin-dependent diabetes mellitus, sleep apnea not on CPAP, questionable polymyalgia rheumatica on chronic steroids presented to the ED with chief complaints of shortness of breath shortly after a bronchoscopy for a suspicious lung nodule at [place]. Her symptoms are consistent with a chemical pneumonitis or chemical pneumonia. She is on Unasyn and was afebrile overnight. She clinically appears improved. 1. Acute hypoxemic respiratory failure - resolved Most likely secondary to chemical pneumonitis. PNA unlikely given the radiological finding and clinical presentation in the absence of SIRS. * Discontinue antbiotics * Follow sputum culture * Lactic acid was slightly elevated at 2.6 - trended down * Discontinue IVF * Monitor vitals every shift * TRC evaluation * Incentive spirometry * Check ambulatory sat - if normal, discharge 2. Diabetes mellitus * Continue her on Levemir 37 units in the morning * Continue holding metformin and pioglitazone * NovoLog sliding scale 3.Nomrocytic anemia Patient states that she has anemial for a long time in her adulthood. Likely 2/2 iron deficiency vs anemia of chronic disease * Iron studies suggest anemia of chronic disease (Could be from her Polymyalgia rheumatica) 4 Hyperlipidemia * Continue on pravastatin 80 mg daily 5. Polymyalgia rheumatica (PMR) * Continue on prednisone 20 mg daily, gabapentin 300 mg at bedtime DVT prophylaxis * Heparin 5000 international units 3 times a day subcutaneous - Diet Diabetic - CODE STATUS Full code Problem List: 1. Aspiration pneumonia due to regurgitated gastric secretions Pain Ratin Pain Location: 0 Pain Goal: Remain pain free Pain Plan: MILD Tomorrow's Labs & Rationales: NONE MEERA OBRIEN,DILLON 08/13/16 1212: Attending MD Review Statement Attending Statement Attending MD Statement: examined this patient, discuss w/resident/PA/REPAIRER RECREATIONAL VEHICLE, agreed w/resident/PA/REPAIRER RECREATIONAL VEHICLE, discussed with family, reviewed EMR data (avail), discussed with nursing, discussed with case mgmt, reviewed images, amended to note Attending Assessment/Plan: Patient resting comfortably in bed. Does not offer any complaint. Currently off of oxygen. Saturating well on room air. Afebrile for more than 24 hours. White count has trended down. Blood culture remains negative. Sputum culture is pending. With Chemical pneumonitis, her antibiotics can be discontinued on discharge given her symptom resolution. Follow-up primary care within a week. Make sure patient does not desaturate on ambulation before discharge.
[2016-08-13 08:58] VITALS: BP 150/68
[2016-08-13] MEDS ORDERED: AUGMENTIN 500-1 EACH PO (13:52)
--- NOTE | 2016-08-13 13:56 | Patient Discharge Instructions ---
Discharge Instructions General Discharge Information You were seen/treated for: Chemical pneumonitis Special Instructions: Please follow up with your regular primary care physician and taximeter repairer within 1 week of discharge. Diet Continue normal diet: Yes Activity Full Activity/No Limits: Yes (as tolerated) Acute Coronary Syndrome Inclusion Criteria At DC or during hospital stay patient has or had the following: ACS DIAGNOSIS No Discharge Core Measures Meds if any: Prescribed or Continued at Discharge Meds if any: NOT Prescribed or Continued at Discharge Congestive Heart Failure Inclusion Criteria At DC or during hospital stay patient has or had the following: CHF DIAGNOSIS No Discharge Core Measures Meds if any: Prescribed or Continued at Discharge Meds if any: NOT Prescribed or Continued at Discharge Cerebrovascular accident Inclusion Criteria At DC or during hospital stay patient has or had the following: CVA/TIA Diagnosis No Discharge Core Measures Meds if any: Prescribed or Continued at Discharge Meds if any: NOT Prescribed or Continued at Discharge Venous thromboembolism Inclusion Criteria VTE Diagnosis No VTE Type NONE VTE Confirmed by (Test) NONE Discharge Core Measures - Per Current guidelines, there needs to be overlap - treatment for the first 5 days of Warfarin therapy. - If discharged on Warfarin prior to 5 days of - overlap therapy, the patient will need to be - assessed for post discharge needs including - *Post discharge parental anticoagulation - *Warfarin and/or parental anticoagulation education - *Follow up date to check INR post discharge At least 5 days overlap therapy as Inpatient No Meds if any: Prescribed or Continued at Discharge Note: Overlap Therapy is Warfarin and Anticoagulant Meds if any: NOT Prescribed or Continued at Discharge
--- NOTE | 2016-08-22 11:06 | Discharge Summary ---
Visit Information Visit Dates Admission Date: 08/11/16 Discharge Date: 08/13/16 Hospital Course Course Attending Physician: DILLON ESTES MD Primary Care Physician: VERONICA EDDY MD [facility] Course: Ms. Ricketts is a 71-year-old woman with a past medical history of insulin- dependent diabetes mellitus, sleep apnea not on CPAP, questionable Polymyalgia rheumatica on chronic steroids who presented to the [facility] ED with chief complaints of shortness of breath. She had previously underwent a routine chest x-ray at her primary care physician and was found to have a spot on her right lung. She was evaluated further for it by a bronchoscopy earlier on the morning of presentation at [place]. She was told that she may have vomited during the procedure. She was discharged home but started to experience sudden onset of shortness of breath at home which worsened as the day progressed. She had difficulty taking a deep breath. She endorsed palpitations and cough but denied bringing up any phlegm. She denied any fever, chills, chest pain, nausea, vomiting, abdominal pain, alterations in bowel movements, urinary complaints. She denied any headache, recent upper respiratory tract infection, any history of prolonged travel. Vital signs at the time admission revealed a blood pressure of 121/79 mmhg, respiratory rate of 24/min, pulse 95 bpm, Oxygen saturation 92% on room air ( later improved to 96% on 2L of O2 by nasal canula). Physical exam at presentation General Appearance: Alert, Oriented X3, Cooperative, No Acute Distress Skin: No Rashes, No Breakdown HEENT: Atraumatic, PERRLA, EOMI, Mucous Membr. moist/pink Neck: Supple, No JVD, No thryomegaly, +2 Carotid Pulse wo Bruit, No LAD Cardiovascular: Regular Rate, Normal S1, Normal S2, No Murmurs Lungs: mild ronchi on right lung base Abdomen: Normal Bowel Sounds, Soft, No Tenderness Neurological: Normal Speech, Strength at 5/5 X4 Ext, Normal Tone, Sensation Intact, Cranial Nerves: 3-12 NL, Reflexes 2+ Extremities: No Clubbing, No Cyanosis, No Edema, Normal Pulses, No Tenderness/ Swelling Vascular: Normal Pulses, Pulses Symmetrical Labs were pertinent for leukocytosis with a white blood cell count 15.9/CUMM, normocytic anemia with a Hb & Hct of 10.6/32.0, platelet count 233/CUMM. Serum chemistries revealed hyponatremia with a sodium of 136mmol/L, potassium of 4.4, bicarbonate of 19, anion gap of 12, BUN 11, creatinine of 0.8 with serum glucose elevated to 316 mg/dl. LFTs were unremarkable with an AST/ALT of 26/30, alkaline phosphatase of 100, total bili of 0.4. Troponin was negative at 0.02 with a proBNP of 184. Corrected serum calcium was within normal limits. A chest x-ray was done which showed prominent bilateral perihilar opacities. EKG showed sinus tachycardia with a heart rate of 101, normal axis, no ST-T changes, normal UT interval of 180 and a normal QTC of 441 ms. In the ER she received treatment with albuterol, Atrovent as well as a dose of Unasyn 3000 mg 1. She was admitted and treated for aspiration pneumonitis with concerns of aspiration pneumonia. Blood cultures were collected prior to the patient being placed on IV unasyn 3000 mg Q 6 hours. She was monitored and remained afebrile throughout the admission. Sputum cultures were unable to be collected as the patient was not coughing anything up. Her lactic acid was slightly elevated at 2.6 and she was hydrated with normal saline. She was also treated with incentive spirometry and bronchodilator nebulizers. It was felt that her symptoms were likely secondary to aspiration pneumonitis and not a pneumonia, given the fact that she did have an episode of emesis while undergoing bronchoscopy, and she never had a fever on admission. Repeat chest x-ray showed no pneumonia, but findings suggestive of mild pulmonary edema. Blood cultures remained negative while on admission and she improved clinically and was off oxygen. Her home medications for diabetes- levemir as well as an insulin sliding scale were continued. She also continued her prednisone 20 mg daily and gabapentin 300 mg at bedtime for polymyalgia rheumatica. She had normocytic anemia on admission which she stated was an old finding for her polymyalgia rheumatica. Iron studies showed a pattern consistent with anemia of chronic disease, thought to be from her polymyalgia rheumatica. Antibiotics were stopped on the second day of admission. Her oxygen requirements improved and she was saturating 94% on room air. She was discharged to follow up with her primary care provider and a guide alpine. Allergies: Coded Allergies: hydrocodone (From Vicodin) (RASH/ITCHY 01/18/16) Disposition Summary Disposition Principal Diagnosis: 1. Acute hypoxic respiratory failure 2. Aspiration pneumonitis Additional Diagnosis: 3. Insulin dependenty diabetes mellitus 4.Nomrocytic anemia 5 Hyperlipidemia 6. Polymyalgia rheumatica (PMR) Discharge Disposition: home or self care Discharge Instructions General Discharge Information Code Status: Full Code Patient's Diet: Diabetic diet Patient's Activity: Self-limited activity Follow-Up Instructions/Appts: Please follow up with your regular primary care physician and guide alpine within 1 week of discharge. Medications at Discharge Discharge Medications: Continue taking these medications: Pravastatin Sodium (Pravachol) 80 MG TABLET 1 Tablet ORAL DAILY Comments: Last Taken: 08/12/16 Time: 5:00 PM Insulin Detemir (Levemir) 100 UNIT/ML VIAL 37 Units Inject into fatty tissue Every Morning Comments: Last Taken: 08/13/16 Time: 10:00 AM Metformin HCl (Glucophage) 1,000 MG TABLET 1 Tablet ORAL TWICE DAILY Comments: NOT GIVEN IN HOSPITAL Venlafaxine HCl (Venlafaxine HCl ER) 75 MG CAP.ER.24H 1 Capsule ORAL DAILY Qty = 90 Comments: NOT GIVEN IN HOSPITAL Gabapentin (Gabapentin) 300 MG CAPSULE 1 Capsule ORAL Every night Qty = 60 Comments: Last Taken: 08/12/16 Time: 10:00 PM Prednisone (Prednisone) 20 MG TABLET 1 Tablet ORAL DAILY Qty = 20 Comments: Last Taken: 08/13/16 Time: 10:00 AM Pioglitazone HCl (Pioglitazone HCl) 45 MG TABLET 1 Tablet ORAL DAILY Qty = 90 Comments: NOT GIVEN IN HOSPITAL Turmeric Root Extract (Turmeric) 500 MG CAPSULE 1 Capsule ORAL TWICE DAILY Days = 60 Comments: NOT GIVEN IN HOSPITAL Magnesium Oxide (Magnesium) 400 MG CAPSULE 1 Tablet ORAL DAILY Days = 90 Comments: NOT GIVEN IN HOSPITAL Ubidecarenone (Co Q-10) 150 MG CAPSULE 1 Capsule ORAL DAILY Days = 90 Comments: NOT GIVEN IN HOSPITAL Lecithin (Lecithin) 1,200 MG CAPSULE 1 Capsule ORAL DAILY Days = 90 Comments: NOT GIVEN IN HOSPITAL Cyanocobalamin (Vitamin B-12) 1,000 MCG TABLET 1 Tablet ORAL DAILY Days = 90 Comments: NOT GIVEN IN HOSPITAL Copies To: SURJIT OBRIEN,VERONICA Danielle; MEERA OBRIEN,DILLON
== END 2016-08-13 15:00 | DRG 205 ==
LOC: ERH 19:54 → ERHI 21:03 → 1NO 21:03 → ENRESERV 08-12 00:04 → 1NO 08-12 01:05
PROVIDERS: Emergency Medicine; Internal Medicine; Internal Medicine Infectious Disease; ADMIT Internal Medicine
DX: J95.89 Other postprocedural complications and disorders of respiratory system, not elsewhere classified (principal); J96.01 Acute respiratory failure with hypoxia; E11.9 Type 2 diabetes mellitus without complications; Z79.4 Long term (current) use of insulin; D64.9 Anemia, unspecified; E78.5 Hyperlipidemia, unspecified; J95.4 Chemical pneumonitis due to anesthesia; Y83.8 Other surgical procedures as the cause of abnormal reaction of the patient, or of later complication, without mention of misadventure at the time of the procedure
CPT/HCPCS: 1NP; ERO; 36415; 82436; 87040; 87070; 93005; 93010; 96374; J1644

== ENCOUNTER → 2017-08-24 | Day surgery (SDC) | payer OTHER, MEDICARE ==
[~2017-08-24] VITALS: Ht 157.5 cm; Wt 108.9 kg
[~2017-08-24] MED LIST changes: +AUGMENTIN 500-1 EACH PO; +CO Q-10150 MG PO; +GABAPENTIN300 M2 PO; +GLUCOPHAGE1000 M1 PO; +IBUPROFEN600 M1 PO; +LECITHIN1200 MG PO; +MAGNESIUM400 M1 PO; +PERCOCET 5-3251 EACH PO; +PIOGLITAZONE HC45 M1 PO; +PREDNISONE20 M1 PO; +TURMERIC500 M1 PO; +VENLAFAXINE HCL75 M1 PO; +VITAMIN B-121000 MC3 PO
--- NOTE | 2017-08-24 07:26 | Operative Report ---
Operative/Inv Procedure Report Surgery Date: 08/24/17 Name of Procedure: Open reduction internal fixation left comminuted distal radius fracture (3 or more fragments). Pre-Operative Diagnosis: Left displaced comminuted distal radius fracture. Post-Operative Diagnosis: Same. Estimated Blood Loss: scant Surgeon/Group Dynamics Instructor: Bety OBRIEN,Cesar/Corby CARIAS Anesthesia: laryngeal mask airway, block Monitors: EKG/blood pressure/oxygen saturation IV Fluids: Lactated Ringer's Implants: 1) Volar distal radius: Arthrex styloid plate fixed with multiple locking screws. 2 (Radial column: Arthrex volar distal radius plate fixed with locking and cortical compression screws. Urine Output: None. Drains: None. Specimens: None. Microbiology: None. Tourniquet: Minutes at 275 mmHg. Complications: None known. Condition: Stable. Operative Indication: The patient is a 72-year-old female who sustained a mechanical fall on 08/15/2017 landing on her left wrist in her kitchen at home. She had immediate left wrist pain and deformity. She went to [facility] emergency room for evaluation. X-rays showed a comminuted displaced unstable left distal radius fracture. She underwent a closed reduction of the wrist with application of a volar short arm splint. Postreduction x-rays showed improved fracture reduction and overall yarsani of radial height and length and inclination and articular tilt. The patient followed up with me with complaints of significant left wrist pain. We did review the x-rays. We did discuss the highly unstable nature of her fracture secondary to marked comminution. We did discuss the risks and benefits and expected outcomes of nonoperative management of the fracture with splinting/casting immobilization until adequate fracture union has taken place followed by physical therapy to try to regain as much motion as possible. We did alternatively discuss surgical intervention with formal ORIF of the distal radius fracture with plate and screw fixation. The patient's x- rays did also show a fracture of the ulnar neck. I did indicate to the patient that I would not anticipate fixing the fracture of the ulnar neck as long as we were able to accomplish satisfactory reduction and fixation of the distal radius and acceptable stability of the ulnar neck fracture under fluoroscopic examination after fixation of the distal radius. All of the patient's questions were answered at length. After discussion of the issues involved and answering all questions the patient did decide that she would like to move forward with surgical management for her left wrist fracture. Surgical consent was obtained. Operative/Procedure Note Note: The patient underwent administration of a left-sided regional block in the preop staging area. She was then brought to the operating room and placed on the operating table in supine position. General anesthesia via LMA was induced by the anesthesiologist. A dose of IV antibiotics were given for infection prophylaxis. All bony prominences were well-padded. Both legs were placed in to calf compression sleeves to hopefully cut down the risk of lower extremity venous pooling and blood clot formation in propagation from the lower extremities. A well-padded tourniquet was applied to the proximal portion of the left arm. The patient's sugar short arm splint was removed. The elbow and wrist and digits were manipulated to loosen things up. We did confirm that we were still able with manipulation to get some motion to the distal radial fracture fragments. The left upper extremity was then prepped and draped in the usual sterile fashion. The skin at the patient's left volar wrist was marked for a volar approach to the distal radius. This included marking the skin for a longitudinal skin incision centered over the palpable underlying FCR tendon. This skin marking ran from the volar wrist skin flexion creases distally extending in a proximal direction for about 6 cm more or less. We did also marked the skin coming obliquely in a proximal ulnar to distal radial direction across the volar skin flexion crease in case we needed to extend the surgical approach distally. After the skin was marked the extremity was exsanguinated and the pneumatic tourniquet was inflated to a pressure of 275 minutes mercury. The skin incision was created sharply with a scalpel. Sharp dissection was continued down through the skin and subcutaneous tissues. We identified the radial vessels once the radial side of the FCR tendon and isolated them and protect them throughout the case. We incised the volar leaf of the FCR tendon sheath to expose the underlying FCR tendon. This allowed us to translocate the FCR tendon in an ulnar direction moving it out of the way. We then continued dissection sharply now through the dorsal leaf of the FCR tendon sheath. After this we performed some blunt fingertip dissection and placed retractors into the wound. We were now down to the pronator quadratus which was reflected in subperiosteal fashion in a radial to ulnar direction. Hohmann retractors were placed off of the ulnar side of the distal radius to retract the pronator quadratus. We now had visualization of the volar surface of the distal radial shaft and metaphysis and watershed line for the joint capsule. The fracture was comminuted and still displaced and unstable. We opened the fracture site to clean up the fracture margins themselves and to clean out debris and early healing tissue from the fracture margins so that we would be able to achieve an adequate reduction of the distal radius. With the fracture fragments opened we irrigated and curetted and used rongeurs to accomplish this. We next performed a manipulation of multiple fracture fragments simultaneously while applying longitudinal traction through the wrist and volar flexing the wrist to get acceptable alignment of the fracture fragments and to restore overall radial height and length and articular tilt as best as possible. We next selected an Arthrex full are distal radius plate of appropriate dimensions medial to lateral and applied that to the volar surface of the distal radius. We pinned this provisionally with olive-tipped guidewire was to hold the plate provisionally in place. We next fixed the plate provisionally to the distal radial shaft working through the slotted hole in the long axis of the plate using a cortical compression screw. We adjusted the plate position and orientation under fluoroscopic control and then we tightened down the screw to fix the plate securely in apposition against the volar cortex of the distal radial shaft. We next began fixation of the plate distally using a combination of partially threaded and fully threaded locking screws working through the targeting guide. We had previously placed some K wires at the distal end of the plate to help with provisional fixation. Fluoroscopic imaging of the wrist in the lateral projection confirmed that these K wires were not in the joint and therefore all screws to be placed in the distal end of the plate would be proximal to this and clearly out of the joint as well. We filled all of the holes in the distal end of the plate with screws of appropriate length. We did also place a couple of locking screws into the radial styloid through the targeting system as well. Once we were satisfied with distal fixation of the plate we evaluated fixation of the proximal end of the plate. The previous replaced initial cortical screw had virtually no purchase in the bone due to the patient's poor bone quality. This made provisional fixation of the plate snugly against the distal radial shaft very difficult. We did manually hold the plate in position against the volar cortex of the distal radial shaft. We placed locking screws 2 through the 2 remaining locking screw holes in the proximal limb of the plate. After consideration I decided that I was not satisfied with the fixation of the proximal end of the plate by only 2 locking screws and virtually no purchase by the initial previous a placed cortical screw. I did therefore elected to gain some additional fracture fixation and stability across the fracture site by applying a second plate to the wrist. We selected an Arthrex styloid plate which was applied along the radial column of the distal radius after elevating the first dorsal wrist compartment tendons away from the bone. Hohmann retractors were placed for visualization. The plate was applied to the radial column of the distal radius and the hooks were partially impacted in to the radial styloid bone and the plate was clamped down to the radial surface of the distal radial shaft holding the plate in place. We fixed the radial column plate with several unicortical locking screws in the distal end of the plate beyond the fracture line. We obtained fixation of the plate proximally as well with several additional locking screws. Once the radial column plate was applied in addition to the initial volar plate the overall stability of the distal radius fracture fixation appeared to be excellent with aggressive manipulation of the wrist in all directions and with forearm rotation motion in both directions. We next evaluated the fracture of the ulnar neck. We did not appreciate any motion of this fracture with simple wrist flexion and extension nor with forearm rotation motion in either direction. We were able to shift the fracture very slightly with forceful manual traction and radial deviation of the wrist. This was felt to be relatively minimal and I elected to not open the ulnar neck fracture site to perform any additional internal fixation of the distal ulna fracture. We obtained final AP and lateral fluoroscopic images of the wrist confirming that we had achieved acceptable fracture reduction, alignment, and length and yarsani of articular tilt of the distal radius. We did also confirm on thorascopic imaging that hardware position and fixation of all implants was acceptable. These images were saved for hard copy. Our attention was now directed towards closure. The wound was copiously irrigated multiple times with saline. The pronator quadratus was allowed to fall down in position over the distal radial plate but was not formally repaired. The soft tissues were irrigated again and then allowed to fall into normal loose approximation. The soft tissue repair itself consisted of placement of multiple 3-0 Vicryl sutures in the superficial subcutaneous tissues placed in simple buried interrupted fashion. The skin margins were then approximated using a running 3-0 Prolene placed in subcuticular fashion. Mastisol was applied about the wound margins. Steri-Strips were applied to augment the subcuticular skin repair. The wound was washed and dried. Adaptic dressing was placed over the Steri-Strip line followed by sterile gauze dressings. Additional fluffed gauze dressings were placed over and about the distal forearm and wrist and carpus with additional fluffed gauze placed between the fingers. This was held in place with gauze wrap. We next applied a thin layer of web roll and then we applied a fiberglass short arm volar splint running from the distal palmar crease distally to the upper forearm proximally. This was held in place with Mohit bandages and allowed to set up with the wrist in neutral position. The left upper extremity was placed into a Gil pillow for elevation. The patient was awakened from general anesthesia and transferred to the stretcher and brought to the recovery room stable condition having tolerated the procedure well. Findings: 1) Acceptable fracture reduction, alignment, and length achieved. 2) Acceptable hardware position and fixation achieved. Discharge Disposition: PACU
== END ==
LOC: STS 02:41
DX: S52.502A Unspecified fracture of the lower end of left radius, initial encounter for closed fracture (principal); W18.30XA Fall on same level, unspecified, initial encounter; Y92.090 Kitchen in other non-institutional residence as the place of occurrence of the external cause; I10 Essential (primary) hypertension; E11.9 Type 2 diabetes mellitus without complications; Z79.84 Long term (current) use of oral hypoglycemic drugs; G47.33 Obstructive sleep apnea (adult) (pediatric); Z85.118 Personal history of other malignant neoplasm of bronchus and lung
CPT/HCPCS: C1713; J0131; J0690; J2250